=== PATIENT | male | born 1990 | race African-American/Black ===

== ENCOUNTER 2022-10-20 17:00 | Emergency (ER) | payer BC, MEDICAID ==
[~2022-10-20] VITALS: Ht 172.7 cm; Wt 80.0 kg
[2022-10-20] MEDS ORDERED: IBUPROFEN 400MG TABLET PO ONE (17:45)
[2022-10-20] MEDS ORDERED: ACETAMINOPHEN 325MG TABLET PO ONE (17:45)
[2022-10-20] MEDS ORDERED: ACETAMINOPHEN 500MG TABLET PO NR (18:15)
[2022-10-20] MEDS ORDERED: IBUPROFEN 400MG TABLET PO NR (18:15)
[2022-10-20] MEDS ORDERED: IBUP-2028 MT (20:00)
[2022-10-20 20:35] VITALS: BP 112/64
== END 2022-10-20 20:35 | disposition home or self-care (01) ==
LOC: ER 17:00
DX: B34.9 Viral infection, unspecified (principal); Z20.822 Contact with and (suspected) exposure to COVID-19
CPT/HCPCS: 87426; 87804; 99283; C9803

== ENCOUNTER 2024-01-14 12:58 | Emergency (ER) | payer MEDICAID, OTHER ==
[~2024-01-14] VITALS: Ht 177.8 cm; Wt 60.0 kg
[~2024-01-14 12:58] MED LIST: IBUP-2028 MT
[2024-01-14 13:00] VITALS: O2SAT 95
[2024-01-14] MEDS ORDERED: ONDANSETRON HCL 4MG/2ML INJ IV STA (13:06)
[2024-01-14 13:13] VITALS: TEMP 98.6
[2024-01-14] MEDS ORDERED: CEFAZOLIN 1000MG PREMIX 50 ML IV ONE (13:15)
[2024-01-14 13:19] LABS: BASOPHILS % 0.8 % (0.0-2.0); DIFFERENTIAL COMMENT 0; EOSINOPHILS % 0.5 % (0.0-5.0); HEMOGLOBIN. 12.2 g/dL (14.0-18.0); LYMPHOCYTES % 30.7 % (20.0-50.0); MEAN CORPUSCULAR HEMOGLOBIN 34.2 pg (28.0-32.0); MEAN CORPUSCULAR VOLUME 103.6 fL (80.0-94.0); MEAN PLATELET VOLUME 8.1 fl (7.4-10.4); MONOCYTES % 6.9 % (2.0-8.0); NEUTROPHILS % 61.1 % (40.0-76.0); PLATELET 206 x1000/uL (130-400); RED BLOOD CELL COUNT 3.58 mill/uL (4.7-6.1); WHITE BLOOD COUNT 8.8 x1000/uL (4.5-11.0)
[2024-01-14 13:25] LABS: ALANINE AMINOTRANSFERASE 13 IU/L (10-49); ALBUMIN 3.9 g/dL (3.2-4.8); ASPARTATE AMINOTRANSFERASE 28 IU/L (<34); BILIRUBIN TOTAL 1.4 mg/dL (0.1-1.0); CALCIUM 8.4 mg/dL (8.7-10.4); CARBON DIOXIDE 17 mEq/L (21-32); CHLORIDE 108 mEq/L (98-107); CREATININE 1.3 mg/dL (0.6-1.3); GLUCOSE 145 mg/dL (70-105); POTASSIUM 3.5 mEq/L (3.5-5.1); PROTEIN TOTAL 6.4 g/dL (6.0-8.3); SODIUM 139 mEq/L (136-145); UREA NITROGEN BLOOD 10 mg/dL (9-23)
[2024-01-14 13:27] VITALS: BP 85/64; PULSE 75; RESP 18
[2024-01-14 13:27] LABS: INR 1.1; PARTIAL THROMBOPLASTIN TIME 27.1 sec (23.4-31.0); PROTHROMBIN TIME 11.9 sec (9.6-11.0)
[2024-01-14] MEDS: FENTANYL CITRATE/PF 50MCG/ML 2ML VIAL IV ONE (13:27)
[2024-01-14] MEDS: SODIUM CHLORIDE 0.9% 1,000 ML IV ONE (13:28)
[2024-01-14] MEDS: TETANUS, DIPHTHERIA, PERTUSSIS VAC/PF 0.5ML (>10YR OLD) IM ONE (13:35)
[2024-01-14 13:39] LABS: LACTIC ACID 8.7 mmol/L (0.4-2.0)
== END 2024-01-14 13:57 | disposition short-term general hospital (02) ==
LOC: ER 12:58
DX: S81.831A Puncture wound without foreign body, right lower leg, initial encounter (principal); W34.09XA Accidental discharge from other specified firearms, initial encounter; Y93.89 Activity, other specified; Y92.89 Other specified places as the place of occurrence of the external cause; Y99.8 Other external cause status
CPT/HCPCS: 99285; 96374; 71045; 96361; 80053; 83605; 83690; 85025; 85610; 85730; 86920; 36415; 72170; 90715; 90471; J3010; J0690; J7030; 36430; P9016